=== PATIENT | female | born 1990 | race Hispanic/Latino ===

== ENCOUNTER 2018-11-06 12:31 | Emergency (ER) | payer BC ==
--- NOTE | 2018-11-06 13:50 | CT ---
EXAM: CT cervical spine PROVIDED CLINICAL HISTORY: Cervical neck pain. TECHNIQUE: Contiguous axial CT images are obtained through the cervical spine from the skull base to the level o f the T2 vertebral body. Sagittal and coronal reformatted images are provided. COMPARISON: None FINDINGS: No evidence for fracture or traumatic subluxation. No prevertebral soft tissue swelling apparent. Vi sualized lung apices appear clear. IMPRESSION: No evidence for fracture or traumatic subluxation.
--- NOTE | 2018-11-06 14:01 | CT ---
CT OF BRAIN PERFORMED WITHOUT CONTRAST ENHANCEMENT: Date: 11/06/18 HISTORY: Right hand tingling. FINDINGS: The ventricular and cisternal system is within normal limits. There are no signs of intracerebral hem orrhage or extra-axial fluid collections. Mastoid air cells are clear. There is some minimal mucosal change in the ethmoid air cells. IMPRESSION: No acute intracranial abnormality. POS: [facility]
[2018-11-06 14:04] LABS: #Basophils 0.1 thou/uL (0.0-0.2); #Eosinphils 0.1 thou/uL (0.0-0.7); #Lymphocytes 3.2 thou/uL (1.20-3.40); #Monocytes 0.6 thou/uL (0.11-0.59); #Neutrophils 7.5 thou/uL (1.40-6.50); %Basophils 1.1 % (0.0-1.0); %Eosinophils 1.2 % (0.0-10.0); %Lymphocytes 27.5 % (21.0-51.0); %Monocytes 5.1 % (0.0-10.0); %Neutrophils 65.1 % (42.0-75.0); Hemoglobin 12.9 g/dL (12.0-16.0); Mean Corpuscular Hemoglobin 26.8 pg (27.0-31.0); Mean Corpuscular Volume 81.3 fL (78.0-98.0); Mean Platelet Volume 6.6 fL (7.4-10.4); Platelet Count 483 thou/uL (130-400); RBC Distribution Width 11.7 % (11.5-14.5); Red Blood Cell (RBC) Count 4.81 mill/uL (4.20-5.40); White Blood Cell (WBC) Count 11.5 thou/uL (4.8-10.8)
[2018-11-06] MEDS ORDERED: Aspirin Chewable 81 MG TAB ONE (14:08)
[2018-11-06 14:25] LABS: ALT (SGPT) 14 U/L (8-55); AST (SGOT) 14 U/L (5-34); Albumin 3.8 g/dL (3.5-5.0); Alkaline Phosphatase 97 U/L (40-150); Anion Gap 11 mmol/L (10-20); BUN (Urea Nitrogen) 11 mg/dL (7.0-18.7); Bilirubin, Total 0.3 mg/dL (0.2-1.2); Calc. Creatinine Clearance 0 mL/min (70-130); Calcium 9.3 mg/dL (7.8-10.44); Carbon Dioxide 26 mmol/L (22-29); Chloride 104 mmol/L (98-107); Estimated GFR-MDRD Greater than 90; Globulin 3.6 g/dL (2.4-3.5); Glucose 94 mg/dL (70-105); Potassium 3.8 mmol/L (3.5-5.1); Protein, Total 7.4 g/dL (6.0-8.3); Sodium 137 mmol/L (136-145)
[2018-11-06] MEDS ORDERED: Ketorolac Tromethamine 30 MG/ML VIAL ONE (15:02)
== END 2018-11-06 16:02 | disposition home or self-care (01) ==
LOC: ERS 12:31
DX: M79.601 Pain in right arm (principal); M54.12 Radiculopathy, cervical region; R20.2 Paresthesia of skin; R07.81 Pleurodynia; F41.9 Anxiety disorder, unspecified
CPT/HCPCS: 36415; 36416; 70450; 72125; 80053; 84484; 85025; 85379; 96374; J1885